=== PATIENT | male | born 1985 | race African-American/Black ===

== ENCOUNTER 2017-03-20 16:10 | Inpatient (IN) | payer OTHER ==
[~2017-03-20] VITALS: Ht 195.6 cm; Wt 127.0 kg
[2017-03-20 17:12] LABS: Basophils # (auto) 0 uL; Basophils % (auto) 0.7 % (0.0-2.0); Eosinophils # (auto) 0.1 uL; Eosinophils % (auto) 3.6 % (0.0-7.0); Hematocrit 42.5 % (41.0-53.0); Hemoglobin 14.1 g/dL (13.5-17.5); Lymphocytes # (auto) 1.2 uL; Lymphocytes % (auto) 29.2 % (10.0-50.0); Mean Corpuscular Hemoglobin 30.6 pg (28.0-32.0); Mean Corpuscular Hgb Conc. 33.2 g/dL (32.0-36.0); Mean Corpuscular Volume 92.2 fL (80.0-100.0); Monocytes # (auto) 0.5 uL; Monocytes % (auto) 11.4 % (0.0-12.0); Neutrophils # (auto) 2.3 uL; Neutrophils % (auto) 55.1 % (37.0-80.0); Nucleated Red Blood Cells % 0.1 %; Platelet Count (auto) 79 10^3/uL (140-450); Red Blood Cells 4.61 10^6/uL (4.5-5.90); Red Cell Distribution Width 14.6 % (11.8-14.3); White Blood Cell 4.2 10^3/uL (4.4-10.8)
[2017-03-20 17:17] LABS: Albumin 3.4 g/dL (3.4-5.0); BUN/Creatinine Ratio 13.5; Calcium 9.2 mg/dL (8.5-10.1); Potassium 3.7 mmol/L (3.5-5.1)
[2017-03-20 17:20] LABS: Bilirubin, Total 6.1 mg/dL (0.2-1.0); Total Protein 8.2 g/dL (6.4-8.2)
[2017-03-20] MEDS ORDERED: SODIUM CHLORIDE 0.9% 1,000 ML IV ONE (19:30)
[2017-03-20] MEDS ORDERED: PANTOPRAZOLE 40 MG/10 ML VIAL IV ONE (19:30)
[2017-03-20 20:02] LABS: INR 1.03 (0.9-1.15); Partial Thromboplastin Time 31.2 sec (22.64-33.71); Prothrombin Time 11.2 sec (9.37-12.3)
[2017-03-20] MEDS ORDERED: SPIRONOLACTONE 25 MG TAB PO ONE (20:45)
[2017-03-20] MEDS ORDERED: FUROSEMIDE 20 MG/2 ML VIAL IV ONE (20:45)
[2017-03-21] MEDS ORDERED: MORPHINE SULF INJ 2 MG/ML SYRINGE 1ML IV ONE (02:45)
[2017-03-21] MEDS ORDERED: ONDANSETRON HCL 4 MG/2 ML VIAL IV ONE (02:45)
[2017-03-21] MEDS ORDERED: HYDROmorphone HCL 2 MG/ML VL IV ONE (06:15)
[2017-03-21] MEDS ORDERED: GASTROGRAFIN 30 ML SOL ONE (09:36)
[2017-03-21] MEDS: PANTOPRAZOLE 40 MG/10 ML VIAL IV SCH ×2 (10:53→23:48)
[2017-03-21] MEDS: ONDANSETRON HCL 4 MG/2 ML VIAL IV PRN ×2 (10:53→23:48)
[2017-03-21] MEDS ORDERED: IOHEXOL 300 MG/ML 100ML BOTTLE IJ ONE (11:34)
[2017-03-21 12:40] VITALS: BP 118/71
[2017-03-21] MEDS ORDERED: methylPREDNISolone SOD SUCC 125 MG/2 ML VL IV ONE (14:00)
[2017-03-21] MEDS: D5W/SOD CHL 0.45% 1,000 ML IV SCH ×2 (15:15→21:55)
[2017-03-21 16:54] VITALS: BP 127/60
[2017-03-21] MEDS: OXYCODONE W/ ACETAMINOPHEN 5/325MG TABLET PO PRN ×2 (17:14→23:48)
[2017-03-21 22:02] VITALS: BP 123/66
[2017-03-21] MEDS: methylPREDNISolone SOD SUCC 125 MG/2 ML VL IV SCH (23:48)
[2017-03-22] MEDS: D5W/SOD CHL 0.45% 1,000 ML IV SCH (04:35)
[2017-03-22 05:21] VITALS: BP 124/76
[2017-03-22 06:37] LABS: Albumin 3.2 g/dL (3.4-5.0); BUN/Creatinine Ratio 12.2; Bilirubin, Total 7.5 mg/dL (0.2-1.0); Calcium 8.9 mg/dL (8.5-10.1); Total Protein 8.2 g/dL (6.4-8.2)
[2017-03-22 06:45] LABS: Basophils # (auto) 0 uL; Basophils % (auto) 0.1 % (0.0-2.0); Eosinophils # (auto) 0 uL; Hematocrit 43.3 % (41.0-53.0); Hemoglobin 15.1 g/dL (13.5-17.5); Lymphocytes # (auto) 0.5 uL; Lymphocytes % (auto) 9.1 % (10.0-50.0); Mean Corpuscular Hemoglobin 31.8 pg (28.0-32.0); Mean Corpuscular Hgb Conc. 34.8 g/dL (32.0-36.0); Mean Corpuscular Volume 91.6 fL (80.0-100.0); Monocytes # (auto) 0.1 uL; Monocytes % (auto) 1.2 % (0.0-12.0); Neutrophils # (auto) 4.6 uL; Neutrophils % (auto) 89.6 % (37.0-80.0); Nucleated Red Blood Cells % 0.1 %; Platelet Count (auto) 69 10^3/uL (140-450); Red Blood Cells 4.73 10^6/uL (4.5-5.90); Red Cell Distribution Width 14.6 % (11.8-14.3); White Blood Cell 5.1 10^3/uL (4.4-10.8)
[2017-03-22] MEDS: OXYCODONE W/ ACETAMINOPHEN 5/325MG TABLET PO PRN ×3 (06:48→21:09)
[2017-03-22] MEDS: ONDANSETRON HCL 4 MG/2 ML VIAL IV PRN ×3 (06:49→18:56)
[2017-03-22 07:36] VITALS: BP 114/67
[2017-03-22] MEDS: HYDROcodone-ACET 10/325MG TAB PO PRN ×3 (11:40→23:25)
[2017-03-22] MEDS: methylPREDNISolone SOD SUCC 125 MG/2 ML VL IV SCH (11:40)
[2017-03-22] MEDS: PANTOPRAZOLE 40 MG/10 ML VIAL IV SCH ×2 (11:40→21:10)
[2017-03-22 11:48] VITALS: BP 125/59
[2017-03-22 17:04] VITALS: BP 111/69
[2017-03-22 22:00] VITALS: BP 130/77
[2017-03-22] MEDS ORDERED: methylPREDNISolone SOD SUCC 125 MG/2 ML VL IV SCH (22:00)
[2017-03-23] MEDS: OXYCODONE W/ ACETAMINOPHEN 5/325MG TABLET PO PRN ×4 (03:18→22:36)
[2017-03-23] MEDS: ONDANSETRON HCL 4 MG/2 ML VIAL IV PRN ×4 (03:18→22:30)
[2017-03-23 05:05] VITALS: BP 120/58
[2017-03-23] MEDS: HYDROcodone-ACET 10/325MG TAB PO PRN ×4 (05:31→23:37)
[2017-03-23 09:21] VITALS: BP 125/68
[2017-03-23] MEDS: PANTOPRAZOLE 40 MG/10 ML VIAL IV SCH ×2 (12:00→22:27)
[2017-03-23 12:30] VITALS: BP 130/72
[2017-03-23 17:27] VITALS: BP 131/72
[2017-03-23 20:00] VITALS: BP 138/87
[2017-03-23 22:00] VITALS: BP 125/72
[2017-03-23] MEDS ORDERED: methylPREDNISolone SOD SUCC 125 MG/2 ML VL IV SCH (22:00)
[2017-03-24] MEDS: ONDANSETRON HCL 4 MG/2 ML VIAL IV PRN ×5 (04:42→22:13)
[2017-03-24] MEDS: OXYCODONE W/ ACETAMINOPHEN 5/325MG TABLET PO PRN ×4 (04:43→23:06)
[2017-03-24 05:17] VITALS: BP 130/57
[2017-03-24] MEDS: HYDROcodone-ACET 10/325MG TAB PO PRN ×5 (05:52→22:12)
[2017-03-24 08:00] VITALS: BP 123/66
[2017-03-24 08:53] VITALS: BP 123/66
[2017-03-24] MEDS: PANTOPRAZOLE 40 MG/10 ML VIAL IV SCH ×2 (10:01→22:11)
[2017-03-24] MEDS: methylPREDNISolone SOD SUCC 125 MG/2 ML VL IV SCH ×2 (10:01→22:12)
[2017-03-24 11:57] VITALS: BP 111/68
[2017-03-24 16:26] VITALS: BP 136/78
[2017-03-24 21:42] VITALS: BP 126/89
[2017-03-25] MEDS: HYDROcodone-ACET 10/325MG TAB PO PRN ×2 (02:07→07:52)
[2017-03-25] MEDS: ONDANSETRON HCL 4 MG/2 ML VIAL IV PRN ×2 (02:07→07:52)
[2017-03-25 04:54] VITALS: BP 117/77
[2017-03-25] MEDS: OXYCODONE W/ ACETAMINOPHEN 5/325MG TABLET PO PRN (05:10)
[2017-03-25 09:14] VITALS: BP 121/76
[2017-03-25 09:15] VITALS: BP 121/76
== END 2017-03-25 11:30 | DRG 378 ==
LOC: ER 16:10 → EEVIPCON 16:11 → EAST 16:11
PROVIDERS: ADMIT Internal Medicine; ATTEND Internal Medicine
DX: K92.0 Hematemesis (principal); K76.6 Portal hypertension; D69.6 Thrombocytopenia, unspecified; E85.9 Amyloidosis, unspecified; R16.1 Splenomegaly, not elsewhere classified; K74.60 Unspecified cirrhosis of liver; K75.4 Autoimmune hepatitis; B19.20 Unspecified viral hepatitis C without hepatic coma; K72.90 Hepatic failure, unspecified without coma; D86.9 Sarcoidosis, unspecified; I86.8 Varicose veins of other specified sites; Z96.89 Presence of other specified functional implants; Z87.891 Personal history of nicotine dependence; Z76.5 Malingerer [conscious simulation]
CPT/HCPCS: 36415; 74176; 74177; 80053; 82150; 82962; 83690; 85025; 85610; 85730; 86850; 86900; 86901; 96361; 96374; 96375; C9113; J2405; J7042

== ENCOUNTER 2017-04-18 23:05 | Emergency (ER) | payer OTHER ==
[~2017-04-18] VITALS: Ht 195.6 cm; Wt 129.3 kg
[2017-04-18] MEDS ORDERED: SODIUM CHLORIDE 0.9% 1,000 ML IVB ONE (23:56)
[2017-04-19] MEDS ORDERED: ONDANSETRON HCL 4 MG/2 ML VIAL IV ONE ×2
[2017-04-19] MEDS ORDERED: NALBUPHINE HCL 10 MG/1ml INJECTION IV ONE
[2017-04-19] MEDS ORDERED: PANTOPRAZOLE 40 MG/10 ML VIAL IV ONE
[2017-04-19 00:10] LABS: Urine Bacteria NONE SEEN /hpf (None Seen); Urine Blood Negative /uL (Negative); Urine Mucus FEW (None Seen); Urine Specific Gravity 1.023 (1.001-1.035); Urine Sperm PRESENT /hpf (None Seen); Urine WBC 1 /hpf (0 - 3)
[2017-04-19 00:12] LABS: Basophils # (auto) 0.1 uL; Basophils % (auto) 2.5 % (0.0-2.0); Eosinophils # (auto) 0.1 uL; Eosinophils % (auto) 2.9 % (0.0-7.0); Hematocrit 44.1 % (41.0-53.0); Hemoglobin 14.9 g/dL (13.5-17.5); Lymphocytes # (auto) 0.9 uL; Lymphocytes % (auto) 31.4 % (10.0-50.0); Mean Corpuscular Hemoglobin 31.5 pg (28.0-32.0); Mean Corpuscular Hgb Conc. 33.8 g/dL (32.0-36.0); Mean Corpuscular Volume 93.3 fL (80.0-100.0); Monocytes # (auto) 0.4 uL; Monocytes % (auto) 12.1 % (0.0-12.0); Neutrophils # (auto) 1.5 uL; Neutrophils % (auto) 51.1 % (37.0-80.0); Platelet Count (auto) 69 10^3/uL (140-450); Red Blood Cells 4.73 10^6/uL (4.5-5.90); Red Cell Distribution Width 15.1 % (11.8-14.3); White Blood Cell 2.9 10^3/uL (4.4-10.8)
[2017-04-19 00:22] LABS: Albumin 2.9 g/dL (3.4-5.0); BUN/Creatinine Ratio 11.3; Calcium 8.3 mg/dL (8.5-10.1); Potassium 4.1 mmol/L (3.5-5.1)
[2017-04-19 00:24] LABS: Bilirubin, Total 3.7 mg/dL (0.2-1.0); Total Protein 7.5 g/dL (6.4-8.2)
[2017-04-19 00:31] LABS: INR 1.13 (0.9-1.15); Partial Thromboplastin Time 31.9 sec (22.64-33.71); Prothrombin Time 12.3 sec (9.37-12.3)
[2017-04-19] MEDS ORDERED: HYDROcodone-ACET 7.5/325MG TAB PO ONE (03:30)
[2017-04-19] MEDS ORDERED: HYDROcodone-ACET 10/325MG TAB PO ONE (03:45)
[2017-04-19 04:42] VITALS: BP 128/77
== END 2017-04-19 05:07 ==
LOC: EDBD 23:05 → ER 23:05
DX: R10.31 Right lower quadrant pain (principal); J11.1 Influenza due to unidentified influenza virus with other respiratory manifestations; I10 Essential (primary) hypertension; R11.2 Nausea with vomiting, unspecified; K59.00 Constipation, unspecified
CPT/HCPCS: 36415; 74176; 80053; 81001; 82150; 83605; 83690; 83735; 85025; 85610; 85730; 93005; 94761; 96361; 96374; 96375; 99285; C9113; J2300; J2405

== ENCOUNTER 2017-04-22 16:59 | Inpatient (IN) | payer OTHER ==
[~2017-04-22] VITALS: Ht 193 cm; Wt 130.1 kg
[2017-04-22] MEDS ORDERED: SODIUM CHLORIDE 0.9% 500 ML IVB ONE (18:03)
[2017-04-22] MEDS ORDERED: PANTOPRAZOLE 40 MG/10 ML VIAL IV STA (18:03)
[2017-04-22 18:10] LABS: Basophils # (auto) 0 uL; Basophils % (auto) 0.8 % (0.0-2.0); Eosinophils # (auto) 0.1 uL; Eosinophils % (auto) 1.8 % (0.0-7.0); Hematocrit 44.3 % (41.0-53.0); Hemoglobin 14.9 g/dL (13.5-17.5); Lymphocytes # (auto) 0.9 uL; Lymphocytes % (auto) 28.1 % (10.0-50.0); Mean Corpuscular Hemoglobin 31.5 pg (28.0-32.0); Mean Corpuscular Hgb Conc. 33.7 g/dL (32.0-36.0); Mean Corpuscular Volume 93.6 fL (80.0-100.0); Monocytes # (auto) 0.5 uL; Monocytes % (auto) 14.4 % (0.0-12.0); Neutrophils # (auto) 1.8 uL; Neutrophils % (auto) 54.9 % (37.0-80.0); Nucleated Red Blood Cells % 0.2 %; Red Blood Cells 4.73 10^6/uL (4.5-5.90); Red Cell Distribution Width 15.4 % (11.8-14.3); White Blood Cell 3.3 10^3/uL (4.4-10.8)
[2017-04-22 18:15] LABS: Platelet Count (auto) 69 10^3/uL (140-450)
[2017-04-22] MEDS ORDERED: ONDANSETRON HCL 4 MG/2 ML VIAL IV ONE ×2 (18:15→19:45)
[2017-04-22] MEDS ORDERED: MORPHINE SULFATE 4 MG/ML SYR/VIAL IV ONE ×2 (18:15→19:45)
[2017-04-22 18:24] LABS: Albumin 3.1 g/dL (3.4-5.0); BUN/Creatinine Ratio 10.7; Bilirubin, Total 3.6 mg/dL (0.2-1.0); Calcium 8.5 mg/dL (8.5-10.1); Potassium 3.7 mmol/L (3.5-5.1); Total Protein 7.8 g/dL (6.4-8.2)
[2017-04-22 18:26] LABS: Urine Bacteria NONE SEEN /hpf (None Seen); Urine Blood Negative /uL (Negative); Urine Mucus FEW (None Seen); Urine Specific Gravity 1.019 (1.001-1.035); Urine Sperm PRESENT /hpf (None Seen); Urine WBC 1 /hpf (0 - 3)
[2017-04-22 18:37] LABS: INR 1.03 (0.9-1.15); Partial Thromboplastin Time 32.1 sec (22.64-33.71); Prothrombin Time 11.2 sec (9.37-12.3)
[2017-04-22 18:44] LABS: Amylase 81 U/L (25-115); Lipase 175 U/L (73-393)
[2017-04-22] MEDS ORDERED: SENNA 8.6 MG TAB PO ONE (20:30)
[2017-04-22] MEDS ORDERED: SENNA 8.6 MG TAB PO PRN (21:00)
[2017-04-22] MEDS: AMITRIPTYLINE HCL 25 MG TAB PO SCH (22:00)
[2017-04-22] MEDS: BISACODYL 5 MG EC TAB PO SCH (22:00)
[2017-04-22 23:15] VITALS: BP 133/83
[2017-04-22] MEDS: HYDROcodone-ACET 10/325MG TAB PO PRN (23:34)
[2017-04-23] MEDS: MORPHINE SULFATE 4 MG/ML SYR/VIAL IV PRN ×6 (00:58→21:36)
[2017-04-23] MEDS: ONDANSETRON HCL 4 MG/2 ML VIAL IV PRN ×6 (00:58→21:36)
[2017-04-23 05:07] VITALS: BP 140/88
[2017-04-23] MEDS: HYDROcodone-ACET 10/325MG TAB PO PRN ×2 (06:12→12:06)
[2017-04-23 06:29] LABS: Amylase 66 U/L (25-115); Lipase 122 U/L (73-393)
[2017-04-23] MEDS: SUCRALFATE 1 GM TAB PO SCH ×3 (07:08→17:26)
[2017-04-23 08:42] VITALS: BP 134/81
[2017-04-23] MEDS: CHOLECALCIFEROL (VITD3) 1,000 UNIT TAB PO SCH (09:27)
[2017-04-23] MEDS: PANTOPRAZOLE 40 MG TAB PO SCH (09:27)
[2017-04-23] MEDS: DULoxetine HCL 30 MG CAP PO SCH (09:27)
[2017-04-23] MEDS: BISACODYL 5 MG EC TAB PO SCH ×2 (09:27→21:36)
[2017-04-23] MEDS ORDERED: predniSONE 5 MG TAB PO SCH (10:00)
[2017-04-23] MEDS ORDERED: TAMSULOSIN HYDROCHLORIDE 0.4 MG CAP PO ONE ×3 (11:45→18:00)
[2017-04-23 12:27] VITALS: BP 150/87
[2017-04-23] MEDS: LACTULOSE 20Gm/30ML SOLN PO SCH ×3 (13:39→21:36)
[2017-04-23 16:28] VITALS: BP 142/91
[2017-04-23] MEDS: methylPREDNISolone SOD SUCC 125 MG/2 ML VL IV SCH (21:35)
[2017-04-23 21:41] VITALS: BP 146/85
[2017-04-23] MEDS: AMITRIPTYLINE HCL 25 MG TAB PO SCH (21:45)
[2017-04-24] MEDS: HYDROcodone-ACET 10/325MG TAB PO PRN ×3 (00:42→15:58)
[2017-04-24] MEDS: LACTULOSE 20Gm/30ML SOLN PO SCH ×6 (01:30→21:58)
[2017-04-24] MEDS: MORPHINE SULFATE 4 MG/ML SYR/VIAL IV PRN ×6 (01:30→23:28)
[2017-04-24] MEDS: ONDANSETRON HCL 4 MG/2 ML VIAL IV PRN ×6 (01:30→23:28)
[2017-04-24 05:22] VITALS: BP 146/82
[2017-04-24] MEDS: SUCRALFATE 1 GM TAB PO SCH ×3 (06:53→16:41)
[2017-04-24 09:25] VITALS: BP 143/85
[2017-04-24] MEDS: methylPREDNISolone SOD SUCC 125 MG/2 ML VL IV SCH ×2 (09:36→21:58)
[2017-04-24] MEDS: DULoxetine HCL 30 MG CAP PO SCH (09:36)
[2017-04-24] MEDS: CHOLECALCIFEROL (VITD3) 1,000 UNIT TAB PO SCH (09:37)
[2017-04-24] MEDS: PANTOPRAZOLE 40 MG TAB PO SCH (09:37)
[2017-04-24] MEDS: BISACODYL 5 MG EC TAB PO SCH ×2 (09:37→21:58)
[2017-04-24 11:00] VITALS: BP 149/88
[2017-04-24 16:48] VITALS: BP 154/90
[2017-04-24] MEDS ORDERED: TAMSULOSIN HYDROCHLORIDE 0.4 MG CAP PO SCH ×2 (18:00)
[2017-04-24] MEDS ORDERED: diphenhdrAMINE HCL 50 MG/1 ML VL IM ONE (19:30)
[2017-04-24] MEDS: AMITRIPTYLINE HCL 25 MG TAB PO SCH (21:58)
[2017-04-24 22:29] VITALS: BP 159/99
[2017-04-24 23:39] VITALS: BP 159/99
[2017-04-25] MEDS: HYDROcodone-ACET 10/325MG TAB PO PRN (01:00)
[2017-04-25] MEDS: LACTULOSE 20Gm/30ML SOLN PO SCH (02:00)
== END 2017-04-25 02:30 | DRG 546 ==
LOC: ER 16:59 → EDBD 16:59 → EDUNIT# 16:59 → EEVIPCON 17:00 → OVERFLOW 17:00 → EAST 23:06
PROVIDERS: ADMIT Internal Medicine; ATTEND Internal Medicine
DX: E85.9 Amyloidosis, unspecified (principal); K92.0 Hematemesis; K74.60 Unspecified cirrhosis of liver; J98.11 Atelectasis; I10 Essential (primary) hypertension; R16.1 Splenomegaly, not elsewhere classified; D86.9 Sarcoidosis, unspecified
CPT/HCPCS: 36415; 74178; 76705; 80053; 81001; 82150; 83690; 85025; 85610; 85730; 87081; 94761; 96361; 96374; 96375; 96376; C9113; J2405

== ENCOUNTER 2017-04-27 17:27 | Inpatient (IN) | payer OTHER ==
[~2017-04-27] VITALS: Ht 195.6 cm; Wt 125.4 kg
[2017-04-27] MEDS ORDERED: IOHEXOL 300 MG/ML 100ML BOTTLE IJ ONE (19:45)
[2017-04-27 20:14] LABS: Basophils # (auto) 0 uL; Basophils % (auto) 0.8 % (0.0-2.0); Eosinophils # (auto) 0.1 uL; Eosinophils % (auto) 2.6 % (0.0-7.0); Hematocrit 46.4 % (41.0-53.0); Hemoglobin 15.8 g/dL (13.5-17.5); Lymphocytes # (auto) 0.8 uL; Mean Corpuscular Hemoglobin 31.7 pg (28.0-32.0); Mean Corpuscular Hgb Conc. 34.2 g/dL (32.0-36.0); Mean Corpuscular Volume 92.9 fL (80.0-100.0); Monocytes # (auto) 0.6 uL; Monocytes % (auto) 14.5 % (0.0-12.0); Neutrophils # (auto) 2.9 uL; Neutrophils % (auto) 64.1 % (37.0-80.0); Nucleated Red Blood Cells % 0.1 %; Platelet Count (auto) 69 10^3/uL (140-450); Red Blood Cells 4.99 10^6/uL (4.5-5.90); Red Cell Distribution Width 14.9 % (11.8-14.3); White Blood Cell 4.5 10^3/uL (4.4-10.8)
[2017-04-27 20:26] LABS: Albumin 3.4 g/dL (3.4-5.0); Calcium 8.7 mg/dL (8.5-10.1); Potassium 3.9 mmol/L (3.5-5.1)
[2017-04-27 20:28] LABS: Bilirubin, Total 3.9 mg/dL (0.2-1.0); Total Protein 8.2 g/dL (6.4-8.2)
[2017-04-27] MEDS ORDERED: PANTOPRAZOLE 40 MG/10 ML VIAL IV ONE (21:00)
[2017-04-27] MEDS: HYDROcodone-ACET 5/325MG TAB PO ONE ×2 (21:12→23:16)
[2017-04-27] MEDS ORDERED: ONDANSETRON HCL 4 MG/2 ML VIAL IV ONE (21:15)
[2017-04-27 23:05] LABS: Urine Bacteria NONE SEEN /hpf (None Seen); Urine Blood Negative /uL (Negative); Urine Mucus FEW (None Seen); Urine WBC 1 /hpf (0 - 3)
[2017-04-27 23:20] LABS: Urine Specific Gravity > 1.050 (1.001-1.035)
[2017-04-28] VITALS (7 sets, daily range): BP systolic 115–133; BP diastolic 70–80
[2017-04-28] MEDS ORDERED: D5W/SOD CHL 0.45% 1,000 ML IV ONE (01:00)
[2017-04-28] MEDS: ONDANSETRON HCL 4 MG/2 ML VIAL IV PRN ×3 (03:50→20:37)
[2017-04-28] MEDS ORDERED: traMADol HCL 50 MG TAB PO PRN (04:45)
[2017-04-28 06:42] LABS: Basophils # (auto) 0 uL; Hemoglobin 13.7 g/dL (13.5-17.5)
[2017-04-28 06:44] LABS: Basophils % (auto) 0.3 % (0.0-2.0); Eosinophils # (auto) 0.1 uL; Hematocrit 40.3 % (41.0-53.0); Lymphocytes # (auto) 0.9 uL; Mean Corpuscular Hemoglobin 31.8 pg (28.0-32.0); Mean Corpuscular Hgb Conc. 34.1 g/dL (32.0-36.0); Mean Corpuscular Volume 93.3 fL (80.0-100.0); Monocytes # (auto) 0.4 uL; Monocytes % (auto) 14.1 % (0.0-12.0); Neutrophils # (auto) 1.5 uL; Neutrophils % (auto) 51.6 % (37.0-80.0); Nucleated Red Blood Cells % 0.2 %; Platelet Count (auto) 51 10^3/uL (140-450); Red Blood Cells 4.32 10^6/uL (4.5-5.90); White Blood Cell 2.9 10^3/uL (4.4-10.8)
[2017-04-28 07:10] LABS: Albumin 2.7 g/dL (3.4-5.0); BUN/Creatinine Ratio 19.3; Bilirubin, Total 3.5 mg/dL (0.2-1.0); Potassium 3.3 mmol/L (3.5-5.1); Total Protein 6.9 g/dL (6.4-8.2)
[2017-04-28] MEDS: PANTOPRAZOLE 40 MG/10 ML VIAL IV SCH ×2 (11:03→21:31)
[2017-04-28] MEDS: MEPERIDINE HCL (50 MG/ML) 1 ML VIAL IV PRN ×2 (15:12→20:38)
[2017-04-28] MEDS: SUCRALFATE 1 GM/10 ML ORAL SUSP PO SCH (17:00)
[2017-04-29] VITALS (7 sets, daily range): BP systolic 125–145; BP diastolic 70–92
[2017-04-29] MEDS: MEPERIDINE HCL (50 MG/ML) 1 ML VIAL IV PRN ×2 (01:13→05:07)
[2017-04-29] MEDS: ONDANSETRON HCL 4 MG/2 ML VIAL IV PRN ×4 (01:13→16:07)
[2017-04-29] MEDS: SUCRALFATE 1 GM/10 ML ORAL SUSP PO SCH ×3 (07:11→17:18)
[2017-04-29] MEDS ORDERED: POTASSIUM CHL 20 Meq TABLET PO ONE (09:30)
[2017-04-29] MEDS: PANTOPRAZOLE 40 MG/10 ML VIAL IV SCH ×2 (10:00→22:00)
[2017-04-29] MEDS: HYDROcodone-ACET 10/325MG TAB PO PRN ×2 (12:52→17:18)
[2017-04-30] MEDS: ONDANSETRON HCL 4 MG/2 ML VIAL IV PRN ×5 (00:37→21:33)
[2017-04-30] MEDS: HYDROcodone-ACET 10/325MG TAB PO PRN ×4 (01:04→10:40)
[2017-04-30] MEDS: PANTOPRAZOLE 40 MG/10 ML VIAL IV SCH ×3 (01:10→21:33)
[2017-04-30 04:45] VITALS: BP 146/75
[2017-04-30] MEDS: SUCRALFATE 1 GM/10 ML ORAL SUSP PO SCH ×3 (07:00→17:00)
[2017-04-30 07:16] LABS: Basophils # (auto) 0 uL; Eosinophils # (auto) 0.1 uL; Monocytes # (auto) 0.4 uL; Neutrophils # (auto) 1.2 uL; White Blood Cell 2.4 10^3/uL (4.4-10.8)
[2017-04-30 07:19] LABS: Basophils % (auto) 0.5 % (0.0-2.0); Eosinophils % (auto) 5.3 % (0.0-7.0); Hematocrit 41.1 % (41.0-53.0); Hemoglobin 14.1 g/dL (13.5-17.5); Lymphocytes # (auto) 0.7 uL; Lymphocytes % (auto) 27.1 % (10.0-50.0); Mean Corpuscular Hemoglobin 31.9 pg (28.0-32.0); Mean Corpuscular Hgb Conc. 34.3 g/dL (32.0-36.0); Monocytes % (auto) 17.4 % (0.0-12.0); Neutrophils % (auto) 49.7 % (37.0-80.0); Nucleated Red Blood Cells % 0.2 %; Platelet Count (auto) 52 10^3/uL (140-450); Red Blood Cells 4.42 10^6/uL (4.5-5.90); Red Cell Distribution Width 14.8 % (11.8-14.3)
[2017-04-30 07:22] LABS: Calcium 8.6 mg/dL (8.5-10.1); Potassium 3.9 mmol/L (3.5-5.1)
[2017-04-30 07:26] LABS: BUN/Creatinine Ratio 8.8
[2017-04-30 09:00] VITALS: BP 127/74
[2017-04-30 13:00] VITALS: BP 127/72
[2017-04-30] MEDS ORDERED: OCTREOTIDE ACETATE 100 MCG in SODIUM CHL 0.9% 50 ML IV ONE (13:15)
[2017-04-30] MEDS: diphenhdrAMINE HCL 50 MG/1 ML VL IV PRN ×2 (13:33→20:16)
[2017-04-30] MEDS: LACTULOSE 20Gm/30ML SOLN PO SCH ×3 (13:44→21:38)
[2017-04-30] MEDS: OCTREOTIDE ACETATE 500 MCG in SODIUM CHL 0.9% 99 ML IV SCH ×2 (14:05→23:19)
[2017-04-30] MEDS: OXYCODONE W/ ACETAMINOPHEN 5/325MG TABLET PO PRN ×2 (14:06→18:00)
[2017-04-30 17:00] VITALS: BP 142/81
[2017-04-30 17:33] LABS: INR 1.02 (0.9-1.15); Prothrombin Time 11.1 sec (9.37-12.3)
[2017-04-30 22:00] VITALS: BP 136/90
[2017-04-30] MEDS: PROMETHAZINE HCL 25 MG/ML 1ML IV PRN (23:19)
[2017-05-01] MEDS: LACTULOSE 20Gm/30ML SOLN PO SCH ×3 (01:52→09:50)
[2017-05-01] MEDS: diphenhdrAMINE HCL 50 MG/1 ML VL IV PRN ×2 (02:15→11:25)
[2017-05-01] MEDS: PROMETHAZINE HCL 25 MG/ML 1ML IV PRN (05:26)
[2017-05-01] MEDS: SUCRALFATE 1 GM/10 ML ORAL SUSP PO SCH ×2 (05:32→11:30)
[2017-05-01 05:48] VITALS: BP 153/89
[2017-05-01 06:40] LABS: INR 1.05 (0.9-1.15); Prothrombin Time 11.4 sec (9.37-12.3)
[2017-05-01 06:56] LABS: BUN/Creatinine Ratio 11.1; Calcium 8.7 mg/dL (8.5-10.1); Potassium 4.1 mmol/L (3.5-5.1)
[2017-05-01] MEDS ORDERED: diphenhdrAMINE HCL 50 MG/1 ML VL ONE (08:42)
[2017-05-01] MEDS ORDERED: NALOXONE HCL 0.4 MG/ML VIAL ONE (08:42)
[2017-05-01] MEDS ORDERED: LIDOCAINE VISCOUS 2% 15ML UD ONE (08:42)
[2017-05-01] MEDS ORDERED: FLUMAZENIL 0.1 MG/ML INJ 10ML MDV IV ONE (08:42)
[2017-05-01 09:47] VITALS: BP 121/77
[2017-05-01] MEDS ORDERED: predniSONE 20 MG TAB PO SCH (10:00)
[2017-05-01] MEDS: fentaNYL CITRATE 100 MCG/2 ML VL ONE ×2 (11:23→11:26)
[2017-05-01] MEDS: MIDAZOLAM HCL 5 MG/ML-1ML VIAL ONE ×2 (11:23→11:26)
[2017-05-01] MEDS ORDERED: METOCLOPRAMIDE HCL 10 MG TAB PO PRN (11:45)
[2017-05-01 13:45] VITALS: BP 131/75
[2017-05-01] MEDS: OXYCODONE W/ ACETAMINOPHEN 5/325MG TABLET PO PRN (13:46)
== END 2017-05-01 14:00 | DRG 378 ==
LOC: EDUNIT# 17:27 → EDBD 17:27 → ER 17:28 → OVERFLOW 17:29 → EEVIPCON 17:29 → EAST 04-28 03:20
PROVIDERS: ADMIT Internal Medicine; ATTEND Internal Medicine
PROC: 0DJ08ZZ Inspection of Upper Intestinal Tract, Via Natural or Artificial Opening Endoscopic (ICD-10-PCS; principal; 2017-05-01 11:19)
DX: K92.0 Hematemesis (principal); E85.9 Amyloidosis, unspecified; K72.90 Hepatic failure, unspecified without coma; K74.60 Unspecified cirrhosis of liver; I85.00 Esophageal varices without bleeding; K75.4 Autoimmune hepatitis; D86.9 Sarcoidosis, unspecified; I10 Essential (primary) hypertension; Z76.5 Malingerer [conscious simulation]
CPT/HCPCS: 36415; 43235; 71046; 71260; 74177; 80048; 80053; 81001; 82150; 83690; 85025; 85610; 87081; 96374; 96375; C9113; J2250; J2405

== ENCOUNTER 2017-05-02 16:47 | Emergency (ER) | payer OTHER ==
[~2017-05-02] VITALS: Ht 195.6 cm; Wt 124.7 kg
[2017-05-02 20:45] LABS: Hemoglobin 15.4 g/dL (13.5-17.5); Platelet Count (auto) 62 10^3/uL (140-450)
[2017-05-02 20:46] LABS: Hematocrit 44.8 % (41.0-53.0); Mean Corpuscular Hemoglobin 31.9 pg (28.0-32.0); Mean Corpuscular Hgb Conc. 34.3 g/dL (32.0-36.0); Red Blood Cells 4.82 10^6/uL (4.5-5.90); Red Cell Distribution Width 14.8 % (11.8-14.3)
[2017-05-02 20:52] LABS: Basophils % (manual) 0 (0.0-2.0); Blast Cells 0; Metamyelocytes % 0; Myelocytes % 0; Promyelocytes % 0; Reactive Lymphocytes 0
[2017-05-02 21:03] LABS: Albumin 3.2 g/dL (3.4-5.0); BUN/Creatinine Ratio 15.3; Calcium 8.6 mg/dL (8.5-10.1); Potassium 3.7 mmol/L (3.5-5.1)
[2017-05-02 21:05] LABS: INR 1.04 (0.9-1.15); Prothrombin Time 11.3 sec (9.37-12.3)
[2017-05-02 21:06] LABS: Bilirubin, Total 6.4 mg/dL (0.2-1.0); Total Protein 8.1 g/dL (6.4-8.2)
[2017-05-02 22:22] VITALS: BP 158/86
[2017-05-02 22:33] LABS: Band Neutrophils % (manual) 5; Eosinophils % (manual) 2 (0-7); Lymphocytes % (manual) 17 (10.0-50.0); Monocytes % (manual) 14 (0-12)
== END 2017-05-02 22:35 ==
LOC: EDBD 16:47 → ER 16:47
DX: R10.13 Epigastric pain (principal); R11.2 Nausea with vomiting, unspecified; I10 Essential (primary) hypertension; Z87.898 Personal history of other specified conditions
CPT/HCPCS: 36415; 80053; 85007; 85027; 85610; 85730

== ENCOUNTER 2017-05-16 18:24 | Emergency (ER) | payer OTHER ==
[~2017-05-16] VITALS: Ht 195.6 cm; Wt 129.3 kg
[2017-05-16 19:05] LABS: Basophils # (auto) 0 uL; Basophils % (auto) 0.5 % (0.0-2.0); Eosinophils # (auto) 0.1 uL; Eosinophils % (auto) 1.9 % (0.0-7.0); Hemoglobin 15.3 g/dL (13.5-17.5); Lymphocytes # (auto) 1.1 uL; Mean Corpuscular Hemoglobin 31.9 pg (28.0-32.0); Mean Corpuscular Hgb Conc. 34.1 g/dL (32.0-36.0); Mean Corpuscular Volume 93.5 fL (80.0-100.0); Monocytes # (auto) 0.6 uL; Monocytes % (auto) 14.1 % (0.0-12.0); Neutrophils # (auto) 2.8 uL; Neutrophils % (auto) 60.5 % (37.0-80.0); Nucleated Red Blood Cells % 0.1 %; Platelet Count (auto) 87 10^3/uL (140-450); Red Blood Cells 4.81 10^6/uL (4.5-5.90); Red Cell Distribution Width 15.2 % (11.8-14.3); White Blood Cell 4.6 10^3/uL (4.4-10.8)
[2017-05-16 19:21] LABS: Alanine Aminotransferase 262 U/L (16-61); Albumin 3.5 g/dL (3.4-5.0); Alkaline Phosphatase 438 U/L (45-117); Anion Gap 8 (5-15); Aspartate Aminotransferase 181 U/L (15-37); BUN/Creatinine Ratio 13.6; Bilirubin, Total 4.8 mg/dL (0.2-1.0); Blood Urea Nitrogen 12 mg/dL (7-18); Calcium 8.6 mg/dL (8.5-10.1); Carbon Dioxide 21 mmol/L (21-32); Chloride 109 mmol/L (98-107); GFR African American 129 mL/min; GFR Non-African American 107 mL/min; Glucose 95 mg/dL (74-106); Potassium 3.9 mmol/L (3.5-5.1); Sodium 138 mmol/L (136-145); Total Protein 8.3 g/dL (6.4-8.2)
[2017-05-16 20:39] LABS: INR 1.01 (0.9-1.15); Partial Thromboplastin Time 30.9 sec (22.64-33.71)
[2017-05-16] MEDS ORDERED: FAMOTIDINE (10MG/ML) 2ML VL IV ONE (21:00)
[2017-05-16] MEDS ORDERED: SODIUM CHLORIDE 0.9% 1,000 ML IV ONE (21:00)
[2017-05-16] MEDS ORDERED: NALBUPHINE HCL 10 MG/1ml INJECTION IV ONE (21:00)
[2017-05-16] MEDS ORDERED: ONDANSETRON HCL 4 MG/2 ML VIAL IV ONE (21:00)
[2017-05-16 23:10] VITALS: BP 136/83
[2017-05-16] MEDS ORDERED: PROMETHAZINE HCL 25 MG/ML 1ML IV ONE (23:30)
[2017-05-17] MEDS ORDERED: NALBUPHINE HCL 10 MG/1ml INJECTION IV ONE
== END 2017-05-17 00:12 | disposition home or self-care (01) ==
LOC: EDBD 18:24 → EDUNIT# 18:24 → ER 18:30
DX: K29.70 Gastritis, unspecified, without bleeding (principal); K70.30 Alcoholic cirrhosis of liver without ascites; D69.6 Thrombocytopenia, unspecified; R74.8 Abnormal levels of other serum enzymes; B19.20 Unspecified viral hepatitis C without hepatic coma; I10 Essential (primary) hypertension
CPT/HCPCS: 36415; 74176; 80053; 84484; 85025; 85610; 85730; 94761; 96361; 96374; 96375; 96376; 99285; J2300; J2405; J2550; J3490; J7030

== ENCOUNTER 2017-08-07 16:57 | Observation (INO) | payer OTHER ==
[~2017-08-07] VITALS: Ht 195.6 cm; Wt 120.2 kg
[~2017-08-07 16:57] MED LIST: CHOL20007 PO; DOCU-94 PO; OME20T PO; PRO20T PO; SENN1TAB14 PO; SPIR25TA89 PO
[2017-08-07 19:15] LABS: Basophils # (auto) 0 uL; Basophils % (auto) 1.1 % (0.0-2.0); Eosinophils # (auto) 0.1 uL; Eosinophils % (auto) 3.9 % (0.0-7.0); Hematocrit 43.3 % (41.0-53.0); Hemoglobin 15.1 g/dL (13.5-17.5); Lymphocytes # (auto) 1.2 uL; Lymphocytes % (auto) 34.9 % (10.0-50.0); Mean Corpuscular Hemoglobin 32.2 pg (28.0-32.0); Mean Corpuscular Hgb Conc. 34.8 g/dL (32.0-36.0); Mean Corpuscular Volume 92.4 fL (80.0-100.0); Monocytes # (auto) 0.5 uL; Monocytes % (auto) 13.5 % (0.0-12.0); Neutrophils # (auto) 1.7 uL; Neutrophils % (auto) 46.6 % (37.0-80.0); Platelet Count (auto) 76 10^3/uL (140-450); Red Blood Cells 4.69 10^6/uL (4.5-5.90); White Blood Cell 3.5 10^3/uL (4.4-10.8)
[2017-08-07 19:20] LABS: Calcium 8.2 mg/dL (8.5-10.1); Potassium 3.6 mmol/L (3.5-5.1)
[2017-08-07 19:23] LABS: Albumin 3.2 g/dL (3.4-5.0); BUN/Creatinine Ratio 14.5
[2017-08-07 19:26] LABS: Bilirubin, Total 3.4 mg/dL (0.2-1.0); Total Protein 7.8 g/dL (6.4-8.2)
[2017-08-07] MEDS ORDERED: NALBUPHINE HCL 10 MG/1ml INJECTION IV ONE (21:30)
[2017-08-07] MEDS ORDERED: ONDANSETRON HCL 4 MG/2 ML VIAL IV ONE (21:30)
[2017-08-07 21:42] LABS: Partial Thromboplastin Time 31.8 sec (23.78-33.04); Prothrombin Time 10.7 sec (9.27-12.13)
[2017-08-08 00:18] VITALS: BP 133/81
[2017-08-08] MEDS ORDERED: NALBUPHINE HCL 10 MG/1ml INJECTION IV ONE (00:30)
== END 2017-08-08 01:32 | disposition home or self-care (01) | DRG 392 ==
LOC: EDBD 16:57 → ER 16:57 → OVERFLOW 16:58 → ER 08-08 01:30
PROVIDERS: ADMIT Emergency Medicine; ATTEND Emergency Medicine
DX: R10.9 Unspecified abdominal pain (principal); K74.60 Unspecified cirrhosis of liver; R00.2 Palpitations; I10 Essential (primary) hypertension; Z79.899 Other long term (current) drug therapy
CPT/HCPCS: 36415; 71045; 74176; 80053; 82150; 83690; 85025; 85610; 85730; 93005; 96374; 96375; 99285; G0378; J2300; J2405

== ENCOUNTER 2017-09-16 19:51 | Inpatient (IN) | payer OTHER ==
[~2017-09-16] VITALS: Ht 195.6 cm; Wt 84.4 kg
[2017-09-16 20:55] LABS: Basophils # (auto) 0 uL; Eosinophils # (auto) 0.1 uL; Monocytes # (auto) 0.6 uL; Neutrophils # (auto) 1.7 uL; Nucleated Red Blood Cells % 0.2 %
[2017-09-16 20:57] LABS: Basophils % (auto) 0.9 % (0.0-2.0); Eosinophils % (auto) 3.3 % (0.0-7.0); Hematocrit 43.3 % (41.0-53.0); Hemoglobin 15.1 g/dL (13.5-17.5); Lymphocytes % (auto) 28.5 % (10.0-50.0); Mean Corpuscular Hemoglobin 33.1 pg (28.0-32.0); Mean Corpuscular Hgb Conc. 34.9 g/dL (32.0-36.0); Mean Corpuscular Volume 94.9 fL (80.0-100.0); Monocytes % (auto) 16.6 % (0.0-12.0); Neutrophils % (auto) 50.7 % (37.0-80.0); Red Blood Cells 4.56 10^6/uL (4.5-5.90); White Blood Cell 3.4 10^3/uL (4.4-10.8)
[2017-09-16 21:04] LABS: Platelet Count (auto) 60 10^3/uL (140-450)
[2017-09-16 21:11] LABS: Partial Thromboplastin Time 32.5 sec (23.78-33.04); Prothrombin Time 10.7 sec (9.27-12.13)
[2017-09-16 21:13] LABS: Alanine Aminotransferase 239 U/L (16-61); Albumin 3.1 g/dL (3.4-5.0); Amylase 89 U/L (25-115); Anion Gap 7 (5-15); Aspartate Aminotransferase 301 U/L (15-37); Blood Urea Nitrogen 13 mg/dL (7-18); Calcium 8.3 mg/dL (8.5-10.1); Carbon Dioxide 21 mmol/L (21-32); Chloride 110 mmol/L (98-107); GFR African American 142 mL/min; GFR Non-African American 117 mL/min; Glucose 94 mg/dL (74-106); Lipase 242 U/L (73-393); Magnesium 2.2 mg/dL (1.6-2.6); Sodium 138 mmol/L (136-145)
[2017-09-16 21:18] LABS: Alkaline Phosphatase 413 U/L (45-117); Bilirubin, Total 3.3 mg/dL (0.2-1.0); Total Protein 7.8 g/dL (6.4-8.2)
[2017-09-16] MEDS ORDERED: ONDANSETRON HCL 4 MG/2 ML VIAL IV ONE (22:15)
[2017-09-16] MEDS ORDERED: SODIUM CHLORIDE 0.9% 1,000 ML IV ONE (22:15)
[2017-09-16] MEDS ORDERED: KETOROLAC TROMETH 30 MG/ML 1ML VIAL IV ONE (22:15)
[2017-09-16] MEDS ORDERED: ALUM & MAG HYDROX-SIMETH LIQ(MAALOX) 30 ML PO ONE (22:15)
[2017-09-16] MEDS ORDERED: PANTOPRAZOLE 40 MG/10 ML VIAL IV ONE (22:15)
[2017-09-16 22:29] LABS: Urine Bacteria NONE SEEN /hpf (None Seen); Urine Blood Negative /uL (Negative); Urine Specific Gravity 1.016 (1.001-1.035); Urine WBC <1 /hpf (0 - 3)
[2017-09-17] MEDS ORDERED: NITROGLYCERIN 0.4 MG SL TAB SL PRN (02:15)
[2017-09-17] MEDS ORDERED: D5W/SOD CHL 0.45% 1,000 ML IV ONE (02:15)
[2017-09-17] MEDS ORDERED: MORPHINE SULFATE 4 MG/ML SYR/VIAL IV PRN ×2 (02:15→07:45)
[2017-09-17] MEDS: ONDANSETRON HCL 4 MG/2 ML VIAL IV PRN (07:51)
[2017-09-17] MEDS ORDERED: SENNA 8.6 MG TAB PO SCH (08:00)
[2017-09-17 09:04] LABS: Basophils # (auto) 0 uL; Basophils % (auto) 0.6 % (0.0-2.0); Eosinophils # (auto) 0.1 uL; Eosinophils % (auto) 4.3 % (0.0-7.0); Hematocrit 41.4 % (41.0-53.0); Hemoglobin 13.8 g/dL (13.5-17.5); Lymphocytes % (auto) 38.3 % (10.0-50.0); Mean Corpuscular Hemoglobin 31.4 pg (28.0-32.0); Mean Corpuscular Hgb Conc. 33.4 g/dL (32.0-36.0); Mean Corpuscular Volume 94.2 fL (80.0-100.0); Monocytes # (auto) 0.4 uL; Monocytes % (auto) 15.4 % (0.0-12.0); Neutrophils # (auto) 1.1 uL; Neutrophils % (auto) 41.4 % (37.0-80.0); Nucleated Red Blood Cells % 0.2 %; Platelet Count (auto) 56 10^3/uL (140-450); Red Cell Distribution Width 14.1 % (11.8-14.3); White Blood Cell 2.6 10^3/uL (4.4-10.8)
[2017-09-17 09:26] LABS: BUN/Creatinine Ratio 13.7; Bilirubin, Total 3.7 mg/dL (0.2-1.0); Calcium 7.8 mg/dL (8.5-10.1); Potassium 3.8 mmol/L (3.5-5.1); Total Protein 7.1 g/dL (6.4-8.2)
[2017-09-17] MEDS: D5W/SOD CHL 0.45%/KCL 20MEQ 1,000 ML IV SCH ×2 (09:42→22:25)
[2017-09-17] MEDS: methylPREDNISolone SOD SUCC 125 MG/2 ML VL IV SCH ×2 (09:43→22:25)
[2017-09-17] MEDS: DOCUSATE SOD 100 MG CAP PO SCH ×2 (09:47→22:00)
[2017-09-17] MEDS: PROPRANOLOL HCL 20 MG TAB PO SCH (09:47)
[2017-09-17] MEDS: PANTOPRAZOLE 40 MG TAB PO SCH ×2 (09:49→22:00)
[2017-09-17] MEDS ORDERED: SPIRONOLACTONE 25 MG TAB PO SCH (10:00)
[2017-09-17 13:12] VITALS: BP 129/67
[2017-09-17 16:32] VITALS: BP 130/65
[2017-09-17 22:00] VITALS: BP 118/75
[2017-09-17] MEDS ORDERED: diphenhdrAMINE HCL 50 MG/1 ML VL IV PRN (22:30)
[2017-09-18] MEDS: D5W/SOD CHL 0.45%/KCL 20MEQ 1,000 ML IV SCH ×3 (02:18→17:53)
[2017-09-18 05:00] VITALS: BP 115/75
[2017-09-18] MEDS ORDERED: InsuLIN REG 1unit/0.01ml Soln (100units/ml) SC SCH (06:15)
[2017-09-18] MEDS ORDERED: DEXTROSE (50%) 50ML SYRG IV PRN (06:15)
[2017-09-18 08:48] VITALS: BP 113/70
[2017-09-18 09:22] LABS: BUN/Creatinine Ratio 9.1; Bilirubin, Total 4.2 mg/dL (0.2-1.0); Calcium 8.4 mg/dL (8.5-10.1); Potassium 4.2 mmol/L (3.5-5.1); Total Protein 7.5 g/dL (6.4-8.2)
[2017-09-18] MEDS: PROPRANOLOL HCL 20 MG TAB PO SCH (10:00)
[2017-09-18] MEDS: PANTOPRAZOLE 40 MG TAB PO SCH ×2 (10:00→20:11)
[2017-09-18] MEDS: DOCUSATE SOD 100 MG CAP PO SCH ×2 (10:00→20:11)
[2017-09-18] MEDS: methylPREDNISolone SOD SUCC 125 MG/2 ML VL IV SCH ×2 (10:30→21:46)
[2017-09-18] MEDS: ONDANSETRON HCL 4 MG/2 ML VIAL IV PRN ×2 (11:45→19:44)
[2017-09-18] MEDS ORDERED: ACCU-CHEK COMFORT CURVE STRIP VI SCH (12:00)
[2017-09-18 13:00] VITALS: BP 119/61
[2017-09-18 17:13] VITALS: BP 137/67
[2017-09-18 22:00] VITALS: BP_SYST 129; BP_SYST 140; BP_DIAS 69; BP_DIAS 89
[2017-09-19] MEDS: D5W/SOD CHL 0.45%/KCL 20MEQ 1,000 ML IV SCH ×2 (01:33→11:15)
[2017-09-19 05:19] VITALS: BP 125/65
[2017-09-19] MEDS: ONDANSETRON HCL 4 MG/2 ML VIAL IV PRN ×2 (06:58→11:08)
[2017-09-19 08:00] VITALS: BP 116/71
[2017-09-19] MEDS: methylPREDNISolone SOD SUCC 125 MG/2 ML VL IV SCH (08:44)
[2017-09-19] MEDS: PANTOPRAZOLE 40 MG TAB PO SCH (08:45)
[2017-09-19] MEDS: DOCUSATE SOD 100 MG CAP PO SCH (08:45)
[2017-09-19] MEDS: PROPRANOLOL HCL 20 MG TAB PO SCH (08:46)
[2017-09-19 09:00] VITALS: BP 126/68
[2017-09-19 10:25] VITALS: BP 126/68
== END 2017-09-19 11:10 | DRG 392 ==
LOC: ER 20:10 → EEVIPCON 20:10 → OVERFLOW 20:11 → EAST 09-17 11:47
PROVIDERS: ADMIT Internal Medicine; ATTEND Internal Medicine
DX: K21.9 Gastro-esophageal reflux disease without esophagitis (principal); K76.6 Portal hypertension; E44.0 Moderate protein-calorie malnutrition; E86.0 Dehydration; K74.60 Unspecified cirrhosis of liver; D69.6 Thrombocytopenia, unspecified; K75.4 Autoimmune hepatitis; K59.00 Constipation, unspecified; D86.9 Sarcoidosis, unspecified; K29.70 Gastritis, unspecified, without bleeding; F17.200 Nicotine dependence, unspecified, uncomplicated; I10 Essential (primary) hypertension; I86.8 Varicose veins of other specified sites; K80.20 Calculus of gallbladder without cholecystitis without obstruction; K72.90 Hepatic failure, unspecified without coma; Z68.22 Body mass index [BMI] 22.0-22.9, adult; Z84.89 Family history of other specified conditions; Z79.899 Other long term (current) drug therapy
CPT/HCPCS: 36415; 74176; 74177; 80053; 81001; 82150; 83690; 83735; 84484; 85025; 85610; 85730; 87040; 96361; 96365; 96375; C9113; J1885; J2405

== ENCOUNTER 2017-10-03 23:06 | Inpatient (IN) | payer OTHER ==
[~2017-10-03] VITALS: Ht 195.6 cm; Wt 123.5 kg
[2017-10-04 00:55] LABS: Basophils # (auto) 0 uL; Eosinophils # (auto) 0.1 uL; Monocytes # (auto) 0.4 uL; Neutrophils # (auto) 1.5 uL; Platelet Count (auto) 50 10^3/uL (140-450)
[2017-10-04 00:58] LABS: Basophils % (auto) 0.6 % (0.0-2.0); Eosinophils % (auto) 3.6 % (0.0-7.0); Hematocrit 42.6 % (41.0-53.0); Hemoglobin 14.6 g/dL (13.5-17.5); Lymphocytes # (auto) 0.8 uL; Lymphocytes % (auto) 28.4 % (10.0-50.0); Mean Corpuscular Hemoglobin 32.4 pg (28.0-32.0); Mean Corpuscular Hgb Conc. 34.2 g/dL (32.0-36.0); Mean Corpuscular Volume 94.5 fL (80.0-100.0); Monocytes % (auto) 13.6 % (0.0-12.0); Neutrophils % (auto) 53.8 % (37.0-80.0); Nucleated Red Blood Cells % 0.1 %; Red Blood Cells 4.51 10^6/uL (4.5-5.90); Red Cell Distribution Width 14.1 % (11.8-14.3); White Blood Cell 2.8 10^3/uL (4.4-10.8)
[2017-10-04 01:09] LABS: Albumin 3.2 g/dL (3.4-5.0); Calcium 8.6 mg/dL (8.5-10.1)
[2017-10-04 01:10] LABS: INR 0.99 (0.9-1.15); Prothrombin Time 10.6 sec (9.27-12.13)
[2017-10-04 01:12] LABS: BUN/Creatinine Ratio 15.8
[2017-10-04 01:14] LABS: Bilirubin, Total 2.7 mg/dL (0.2-1.0); Total Protein 7.8 g/dL (6.4-8.2)
[2017-10-04] MEDS ORDERED: PANTOPRAZOLE 40 MG/10 ML VIAL IV ONE ×2 (08:15→14:45)
[2017-10-04] MEDS ORDERED: NALBUPHINE HCL 10 MG/1ml INJECTION IV ONE (08:30)
[2017-10-04] MEDS ORDERED: PROMETHAZINE HCL 25 MG/ML 1ML IV ONE (08:30)
[2017-10-04] MEDS ORDERED: MORPHINE SULFATE 4 MG/ML SYR/VIAL IV ONE ×2 (08:30→11:30)
[2017-10-04] MEDS ORDERED: ONDANSETRON HCL 4 MG/2 ML VIAL IV ONE (11:30)
[2017-10-04] MEDS ORDERED: HYDROcodone-ACET 5/325MG TAB PO PRN (14:45)
[2017-10-04] MEDS ORDERED: MORPHINE SULF INJ 2 MG/ML SYRINGE 1ML IV PRN (14:45)
[2017-10-04] MEDS ORDERED: NITROGLYCERIN 0.4 MG SL TAB SL PRN (14:45)
[2017-10-04] MEDS: D5W/SOD CHL 0.45% 1,000 ML IV SCH (16:56)
[2017-10-04 17:00] VITALS: BP 149/87
[2017-10-04 18:00] VITALS: BP 149/87
[2017-10-04] MEDS: SUCRALFATE 1 GM/10 ML ORAL SUSP PO SCH ×2 (18:00→22:00)
[2017-10-04] MEDS: PANTOPRAZOLE 80 MG in SODIUM CHL 0.9% 60 ML IV SCH (18:15)
[2017-10-04] MEDS: MEPERIDINE HCL (25 MG/ML) 1ML VIAL IV PRN ×2 (18:16→22:27)
[2017-10-04] MEDS: PROMETHAZINE HCL 25 MG/ML 1ML IV PRN ×2 (18:16→22:27)
[2017-10-04 22:00] VITALS: BP 121/70
[2017-10-05] MEDS: MEPERIDINE HCL (50 MG/ML) 1 ML VIAL IV PRN ×8 (01:40→22:40)
[2017-10-05] MEDS: PROMETHAZINE HCL 25 MG/ML 1ML IV PRN ×7 (02:15→22:41)
[2017-10-05] MEDS ORDERED: PANTOPRAZOLE 40 MG/10 ML VIAL IV ONE (02:33)
[2017-10-05] MEDS: PANTOPRAZOLE 80 MG in SODIUM CHL 0.9% 60 ML IV SCH ×2 (02:45→11:02)
[2017-10-05 04:34] LABS: Urine Bacteria FEW /hpf (None Seen); Urine Blood Negative /uL (Negative); Urine Mucus FEW (None Seen); Urine Specific Gravity 1.021 (1.001-1.035); Urine WBC 1 /hpf (0 - 3)
[2017-10-05 05:00] VITALS: BP 109/63
[2017-10-05] MEDS: D5W/SOD CHL 0.45% 1,000 ML IV SCH ×2 (05:03→19:02)
[2017-10-05] MEDS: SUCRALFATE 1 GM/10 ML ORAL SUSP PO SCH ×4 (05:55→22:40)
[2017-10-05 08:07] LABS: Hematocrit 39.2 % (41.0-53.0); Hemoglobin 13.4 g/dL (13.5-17.5); Mean Corpuscular Hemoglobin 32.2 pg (28.0-32.0)
[2017-10-05 08:10] LABS: Mean Corpuscular Volume 94.6 fL (80.0-100.0); Platelet Count (auto) 48 10^3/uL (140-450); Red Blood Cells 4.15 10^6/uL (4.5-5.90); Red Cell Distribution Width 14.1 % (11.8-14.3)
[2017-10-05 08:20] LABS: White Blood Cell 1.9 10^3/uL (4.4-10.8)
[2017-10-05 08:21] LABS: Band Neutrophils % (manual) 0; Basophils % (manual) 0 (0.0-2.0); Blast Cells 0; Metamyelocytes % 0; Myelocytes % 0; Promyelocytes % 0; Reactive Lymphocytes 0
[2017-10-05 08:22] LABS: Albumin 2.8 g/dL (3.4-5.0); BUN/Creatinine Ratio 12.3; Bilirubin, Total 3.6 mg/dL (0.2-1.0); Calcium 8.2 mg/dL (8.5-10.1); Total Protein 6.8 g/dL (6.4-8.2)
[2017-10-05 09:00] VITALS: BP 113/64
[2017-10-05 09:02] LABS: Eosinophils % (manual) 5 (0-7); Lymphocytes % (manual) 26 (10.0-50.0); Monocytes % (manual) 16 (0-12)
[2017-10-05] MEDS ORDERED: MEPERIDINE HCL (50 MG/ML) 1 ML VIAL IV ONE (12:45)
[2017-10-05 13:00] VITALS: BP 110/63
[2017-10-05] MEDS: predniSONE 20 MG TAB PO SCH (15:44)
[2017-10-05 17:01] VITALS: BP 131/75
[2017-10-05] MEDS: Ensure Enlive Vanilla 8oz Bottle PO SCH ×2 (18:00→22:41)
[2017-10-05 21:50] VITALS: BP 127/65
[2017-10-05] MEDS: PANTOPRAZOLE 40 MG TAB PO SCH (22:40)
[2017-10-06] MEDS: MEPERIDINE HCL (50 MG/ML) 1 ML VIAL IV PRN ×6 (03:00→17:04)
[2017-10-06] MEDS: PROMETHAZINE HCL 25 MG/ML 1ML IV PRN ×6 (03:00→23:45)
[2017-10-06 05:05] VITALS: BP 119/73
[2017-10-06] MEDS: SUCRALFATE 1 GM/10 ML ORAL SUSP PO SCH ×4 (06:46→21:54)
[2017-10-06 09:00] VITALS: BP 136/69
[2017-10-06] MEDS ORDERED: HYDROcodone-ACET 10/325MG TAB PO ONE (09:00)
[2017-10-06] MEDS: PANTOPRAZOLE 40 MG TAB PO SCH ×2 (09:39→21:54)
[2017-10-06] MEDS: D5W/SOD CHL 0.45% 1,000 ML IV SCH (10:07)
[2017-10-06] MEDS: predniSONE 20 MG TAB PO SCH (10:39)
[2017-10-06] MEDS: Ensure Enlive Vanilla 8oz Bottle PO SCH ×3 (12:00→21:54)
[2017-10-06 12:30] VITALS: BP 123/72
[2017-10-06] MEDS: HYDROmorphone HCL 2 MG/ML VL IV PRN ×4 (13:02→21:54)
[2017-10-06] MEDS ORDERED: MILK OF MAGNESIA 30ML SUSP PO ONE (14:00)
[2017-10-06 14:42] LABS: Basophils # (auto) 0 uL; Eosinophils # (auto) 0.1 uL; Eosinophils % (auto) 3.7 % (0.0-7.0); Lymphocytes # (auto) 0.7 uL; Monocytes # (auto) 0.4 uL; Nucleated Red Blood Cells % 0.1 %; Platelet Count (auto) 49 10^3/uL (140-450); Red Cell Distribution Width 14.4 % (11.8-14.3); White Blood Cell 3.1 10^3/uL (4.4-10.8)
[2017-10-06 14:44] LABS: Basophils % (auto) 0.5 % (0.0-2.0); Hemoglobin 14.1 g/dL (13.5-17.5); Lymphocytes % (auto) 21.8 % (10.0-50.0); Mean Corpuscular Hemoglobin 32.1 pg (28.0-32.0); Mean Corpuscular Hgb Conc. 33.7 g/dL (32.0-36.0); Mean Corpuscular Volume 95.3 fL (80.0-100.0); Monocytes % (auto) 14.2 % (0.0-12.0); Neutrophils # (auto) 1.9 uL; Neutrophils % (auto) 59.8 % (37.0-80.0); Red Blood Cells 4.41 10^6/uL (4.5-5.90)
[2017-10-06] MEDS: HYDROcodone-ACET 10/325MG TAB PO PRN ×3 (15:30→23:45)
[2017-10-06 17:03] VITALS: BP 123/75
[2017-10-06 22:00] VITALS: BP 135/88
[2017-10-07] MEDS: D5W/SOD CHL 0.45% 1,000 ML IV SCH ×2 (00:34→17:58)
[2017-10-07] MEDS: HYDROmorphone HCL 2 MG/ML VL IV PRN ×5 (01:15→09:57)
[2017-10-07] MEDS: PROMETHAZINE HCL 25 MG/ML 1ML IV PRN ×2 (04:04→08:02)
[2017-10-07 05:00] VITALS: BP 130/86
[2017-10-07] MEDS: Ensure Enlive Vanilla 8oz Bottle PO SCH ×4 (06:00→23:25)
[2017-10-07] MEDS: SUCRALFATE 1 GM/10 ML ORAL SUSP PO SCH ×2 (06:00→11:24)
[2017-10-07 06:28] LABS: Basophils # (auto) 0 uL; Hemoglobin 14.6 g/dL (13.5-17.5); Neutrophils # (auto) 2.5 uL; White Blood Cell 4.3 10^3/uL (4.4-10.8)
[2017-10-07 06:31] LABS: Basophils % (auto) 1.2 % (0.0-2.0); Eosinophils # (auto) 0.1 uL; Hematocrit 42.8 % (41.0-53.0); Lymphocytes # (auto) 0.9 uL; Lymphocytes % (auto) 20.1 % (10.0-50.0); Mean Corpuscular Hemoglobin 32.6 pg (28.0-32.0); Mean Corpuscular Hgb Conc. 34.1 g/dL (32.0-36.0); Mean Corpuscular Volume 95.5 fL (80.0-100.0); Monocytes # (auto) 0.7 uL; Monocytes % (auto) 16.5 % (0.0-12.0); Neutrophils % (auto) 59.2 % (37.0-80.0); Nucleated Red Blood Cells % 0.2 %; Platelet Count (auto) 50 10^3/uL (140-450); Red Blood Cells 4.48 10^6/uL (4.5-5.90); Red Cell Distribution Width 14.4 % (11.8-14.3)
[2017-10-07 06:42] LABS: INR 1.02 (0.9-1.15); Partial Thromboplastin Time 31.3 sec (23.78-33.04); Prothrombin Time 10.9 sec (9.27-12.13)
[2017-10-07 06:51] LABS: Albumin 3.3 g/dL (3.4-5.0); BUN/Creatinine Ratio 11.1; Bilirubin, Total 3.1 mg/dL (0.2-1.0); Calcium 8.5 mg/dL (8.5-10.1); Potassium 3.8 mmol/L (3.5-5.1); Total Protein 7.8 g/dL (6.4-8.2)
[2017-10-07 08:00] VITALS: BP 118/76
[2017-10-07] MEDS ORDERED: LIDOCAINE VISCOUS 2% 15ML UD ONE (08:30)
[2017-10-07] MEDS ORDERED: SODIUM CHLORIDE LOCK 10 ML ONE (08:30)
[2017-10-07] MEDS ORDERED: diphenhdrAMINE HCL 50 MG/1 ML VL ONE (08:31)
[2017-10-07] MEDS: predniSONE 20 MG TAB PO SCH (09:57)
[2017-10-07] MEDS: PANTOPRAZOLE 40 MG TAB PO SCH ×2 (09:57→23:25)
[2017-10-07 11:04] LABS: Hepatitis B Surface Antibody Positive
[2017-10-07] MEDS: fentaNYL CITRATE 100 MCG/2 ML VL ONE ×2 (11:28→11:31)
[2017-10-07] MEDS: MIDAZOLAM HCL 5 MG/ML-1ML VIAL ONE ×3 (11:28→11:34)
[2017-10-07 11:42] LABS: Hepatitis A Total Antibody Negative
[2017-10-07 12:00] VITALS: BP 122/75
[2017-10-07 14:11] LABS: Hepatitis B Core Total AB Negative; Hepatitis B Surface Antigen Negative (Negative); Hepatitis C Antibody Negative (Negative)
[2017-10-07 15:15] LABS: Basophils # (auto) 0 uL; Eosinophils # (auto) 0.2 uL; Mean Corpuscular Volume 95.7 fL (80.0-100.0); Neutrophils # (auto) 2.8 uL; Platelet Count (auto) 53 10^3/uL (140-450)
[2017-10-07 15:17] LABS: Basophils % (auto) 0.5 % (0.0-2.0); Eosinophils % (auto) 4.4 % (0.0-7.0); Hematocrit 43.1 % (41.0-53.0); Lymphocytes # (auto) 1.2 uL; Lymphocytes % (auto) 25.1 % (10.0-50.0); Mean Corpuscular Hemoglobin 33.2 pg (28.0-32.0); Mean Corpuscular Hgb Conc. 34.7 g/dL (32.0-36.0); Monocytes # (auto) 0.6 uL; Monocytes % (auto) 13.2 % (0.0-12.0); Neutrophils % (auto) 56.8 % (37.0-80.0); Nucleated Red Blood Cells % 0.1 %; Red Cell Distribution Width 14.3 % (11.8-14.3); White Blood Cell 4.9 10^3/uL (4.4-10.8)
[2017-10-07 16:00] VITALS: BP 137/92
[2017-10-07] MEDS: METOCLOPRAMIDE HCL 5MG/ml INJ 2ml VIAL IV SCH ×2 (17:58→23:25)
[2017-10-07] MEDS: KETOROLAC TROMETH 30 MG/ML 1ML VIAL IV PRN (17:59)
[2017-10-07] MEDS: HYDROcodone-ACET 10/325MG TAB PO PRN (21:10)
[2017-10-07 22:00] VITALS: BP 136/87
[2017-10-07] MEDS: diphenhdrAMINE HCL 50 MG/1 ML VL IV PRN (23:26)
[2017-10-08] MEDS: KETOROLAC TROMETH 30 MG/ML 1ML VIAL IV PRN ×3 (00:44→17:48)
[2017-10-08] MEDS: PROMETHAZINE HCL 25 MG/ML 1ML IV PRN ×4 (00:44→14:22)
[2017-10-08] MEDS: D5W/SOD CHL 0.45% 1,000 ML IV SCH (04:45)
[2017-10-08] MEDS: HYDROcodone-ACET 10/325MG TAB PO PRN ×4 (04:46→15:39)
[2017-10-08 05:00] VITALS: BP 120/76
[2017-10-08] MEDS: METOCLOPRAMIDE HCL 5MG/ml INJ 2ml VIAL IV SCH ×3 (06:00→14:06)
[2017-10-08] MEDS: Ensure Enlive Vanilla 8oz Bottle PO SCH ×3 (06:36→18:00)
[2017-10-08] MEDS: MEPERIDINE HCL (50 MG/ML) 1 ML VIAL IV PRN ×3 (07:33→15:00)
[2017-10-08 08:00] VITALS: BP 131/63
[2017-10-08] MEDS: PANTOPRAZOLE 40 MG TAB PO SCH (10:00)
[2017-10-08] MEDS: predniSONE 20 MG TAB PO SCH (10:12)
[2017-10-08 12:00] VITALS: BP 126/79
[2017-10-08] MEDS: diphenhdrAMINE HCL 50 MG/1 ML VL IV PRN ×2 (12:33→17:48)
[2017-10-08 16:00] VITALS: BP 157/82
== END 2017-10-08 18:30 | DRG 378 ==
LOC: ER 23:19 → EEVIPCON 23:19 → EAST 23:20
PROVIDERS: ADMIT Specialist; ATTEND Internal Medicine
PROC: 0DJ08ZZ Inspection of Upper Intestinal Tract, Via Natural or Artificial Opening Endoscopic (ICD-10-PCS; principal; 2017-10-07 13:26)
DX: K92.0 Hematemesis (principal); D61.818 Other pancytopenia; E85.9 Amyloidosis, unspecified; K74.60 Unspecified cirrhosis of liver; D86.9 Sarcoidosis, unspecified; I10 Essential (primary) hypertension; K31.84 Gastroparesis; K75.4 Autoimmune hepatitis
CPT/HCPCS: 36415; 43235; 71045; 74176; 80053; 81001; 82140; 82150; 83690; 83735; 85007; 85025; 85027; 85610; 85730; 86704; 86706; 86708; 86803; 86850; 86900; 86901; 87081; 87340; 93005; 96374; 96375; C9113; J1885; J2250; J2405

== ENCOUNTER 2017-10-20 19:13 | Emergency (ER) | payer OTHER ==
[~2017-10-20] VITALS: Ht 195.6 cm; Wt 74.8 kg
[2017-10-20 20:48] LABS: Basophils # (auto) 0 uL; Eosinophils # (auto) 0.1 uL; Eosinophils % (auto) 2.9 % (0.0-7.0); Lymphocytes # (auto) 0.7 uL; Monocytes # (auto) 0.4 uL; Neutrophils # (auto) 1.6 uL; Nucleated Red Blood Cells % 0.1 %; White Blood Cell 2.8 10^3/uL (4.4-10.8)
[2017-10-20 20:49] LABS: Basophils % (auto) 0.4 % (0.0-2.0); Hematocrit 42.5 % (41.0-53.0); Hemoglobin 14.7 g/dL (13.5-17.5); Lymphocytes % (auto) 24.8 % (10.0-50.0); Mean Corpuscular Hemoglobin 32.9 pg (28.0-32.0); Mean Corpuscular Hgb Conc. 34.5 g/dL (32.0-36.0); Mean Corpuscular Volume 95.5 fL (80.0-100.0); Monocytes % (auto) 15.2 % (0.0-12.0); Neutrophils % (auto) 56.7 % (37.0-80.0); Platelet Count (auto) 56 10^3/uL (140-450); Red Blood Cells 4.45 10^6/uL (4.5-5.90); Red Cell Distribution Width 14.3 % (11.8-14.3)
[2017-10-20 20:59] LABS: BUN/Creatinine Ratio 15.5; Calcium 8.3 mg/dL (8.5-10.1); Magnesium 2.2 mg/dL (1.6-2.6); Potassium 3.7 mmol/L (3.5-5.1)
[2017-10-20 21:02] LABS: Bilirubin, Total 2.6 mg/dL (0.2-1.0); Total Protein 7.4 g/dL (6.4-8.2)
[2017-10-20 21:04] LABS: INR 1.02 (0.9-1.15); Partial Thromboplastin Time 30.8 sec (23.78-33.04); Prothrombin Time 10.9 sec (9.27-12.13)
[2017-10-20] MEDS ORDERED: NALBUPHINE HCL 10 MG/1ml INJECTION IV ONE (22:30)
[2017-10-20] MEDS ORDERED: PHYTONADIONE (VIT K)10 MG/ML 1ML VIAL SUBCUT ONE (22:30)
[2017-10-20] MEDS ORDERED: PROMETHAZINE HCL 25 MG/ML 1ML IV ONE (22:30)
[2017-10-20] MEDS ORDERED: SODIUM CHLORIDE 0.9% 1,000 ML IV ONE (22:30)
[2017-10-20] MEDS ORDERED: PANTOPRAZOLE 40 MG/10 ML VIAL IV ONE (22:30)
[2017-10-20 22:44] LABS: Urine WBC None Seen /hpf (0 - 3)
[2017-10-20 23:02] LABS: Urine Bacteria NONE SEEN /hpf (None Seen); Urine Blood Negative /uL (Negative)
[2017-10-20 23:21] LABS: Alcohol, Urine < 3.0 mg/dL (0-5); Amphetamine Screen, Urine NEGATIVE (NEGATIVE); Barbiturate Scree,Urine NEGATIVE (NEGATIVE); Benzodiazephine Screen, Urine NEGATIVE (NEGATIVE); Cannabinoid Screen, Urine NEGATIVE (NEGATIVE); Cocaine Screen, Urine NEGATIVE (NEGATIVE); Opiate Scree,Urine NEGATIVE (NEGATIVE); Phencyclidine Screen, Urine NEGATIVE (NEGATIVE)
[2017-10-21] MEDS ORDERED: MORPHINE SULFATE 4 MG/ML SYR/VIAL IM ONE (01:00)
[2017-10-21] MEDS ORDERED: MORPHINE SULF INJ 2 MG/ML SYRINGE 1ML ONE ×2 (02:21→02:22)
[2017-10-21] MEDS ORDERED: PROMETHAZINE HCL 25 MG/ML 1ML ONE (02:22)
[2017-10-21] MEDS ORDERED: PROMETHAZINE HCL 25 MG/ML 1ML IV ONE (02:30)
[2017-10-21 03:50] VITALS: BP 132/84
== END 2017-10-21 07:19 | disposition home or self-care (01) ==
LOC: ER 19:20
DX: K92.0 Hematemesis (principal); I10 Essential (primary) hypertension; B19.20 Unspecified viral hepatitis C without hepatic coma; I86.4 Gastric varices; R16.1 Splenomegaly, not elsewhere classified; K59.00 Constipation, unspecified; K21.9 Gastro-esophageal reflux disease without esophagitis
CPT/HCPCS: 36415; 71045; 74176; 80053; 80307; 81001; 82140; 82248; 83735; 85025; 85610; 85730; 86850; 86900; 86901; 96361; 96372; 96374; 96375; 96376; 99285; C9113; J2300; J2550; J3430; J7030